=== PATIENT | female | born 1990 | race Caucasian/White ===

== ENCOUNTER → 2020-03-18 16:24 | Outpatient (CLI) | payer OTHER, SELFPAY ==
[2020-03-18 14:39] VITALS: BMI 22.1
[2020-03-18 18:50] LABS: Chlamydia Trachomatis by PCR Negative (Negative); Neisserai gonorrhoeae by PCR Negative (Negative); Probe Check PASS; Sample Adequacy Control PASS; Specimen Processing Control PASS
== END ==
PROVIDERS: Referring Provider Nurse Practitioner Women's Health; Visit Provider Nurse Practitioner Women's Health
DX: Z11.3 Encounter for screening for infections with a predominantly sexual mode of transmission (principal)
CPT/HCPCS: 87491; 87591

== ENCOUNTER → 2020-04-08 12:31 | Outpatient (CLI) | payer OTHER, SELFPAY ==
[2020-03-18 14:39] VITALS: BMI 22.1
== END ==
PROVIDERS: Referring Provider Nurse Practitioner Women's Health; Visit Provider Nurse Practitioner Women's Health
DX: Z31.41 Encounter for fertility testing (principal)
CPT/HCPCS: 36415

== ENCOUNTER → 2020-05-29 08:27 | Outpatient (CLI) | payer OTHER, SELFPAY ==
[2020-03-18 14:39] VITALS: BMI 22.1
[2020-05-29 09:13] LABS: Progesterone Level 6.74 ng/mL (See Comment)
== END ==
PROVIDERS: Referring Provider Nurse Practitioner Women's Health; Visit Provider Nurse Practitioner Women's Health
DX: N97.9 Female infertility, unspecified (principal)
CPT/HCPCS: 36415; 84144

== ENCOUNTER → 2020-12-24 13:47 | Outpatient (CLI) | payer OTHER, SELFPAY ==
[2020-12-24 14:27] LABS: T4 Free Direct 0.94 ng/dL (0.76-1.46); Thyroid Stim Hormone (TSH) 0.85 uIU/mL (0.358-3.74)
== END ==
PROVIDERS: Referring Provider Internal Medicine Endocrinology, Diabetes & Metabolism; Visit Provider Internal Medicine Endocrinology, Diabetes & Metabolism
DX: R94.6 Abnormal results of thyroid function studies (principal)
CPT/HCPCS: 36415; 84439; 84443; 84481

== ENCOUNTER → 2022-03-30 | Outpatient (CLI) | payer OTHER, SELFPAY ==
[2022-04-07 16:44] LABS: HPV Reflexed? NOT INDICATED
== END | disposition home or self-care (01) ==
LOC: LABSPEC 16:08
PROVIDERS: Referring Provider Nurse Practitioner Women's Health; Visit Provider Nurse Practitioner Women's Health
DX: Z12.4 Encounter for screening for malignant neoplasm of cervix (principal)
CPT/HCPCS: 88175; G0145

== ENCOUNTER → 2024-05-01 | Outpatient (CLI) | payer BC, SELFPAY ==
[2024-05-03 14:08] LABS: HPV APTIMA, High Risk Negative (Negative)
== END | disposition home or self-care (01) ==
PROVIDERS: Referring Provider Nurse Practitioner Women's Health; Visit Provider Nurse Practitioner Women's Health
DX: Z12.4 Encounter for screening for malignant neoplasm of cervix (principal)
CPT/HCPCS: 87624; 88175; G0145